=== PATIENT | male | born 1975 | race Caucasian/White ===

== ENCOUNTER 2019-11-15 18:19 | Emergency (ER) | payer BC, MEDICAID ==
[~2019-11-15] VITALS: Ht 177.8 cm; Wt 81.2 kg
--- NOTE | 2019-11-15 18:41 | NUR ---
BIBS FROM HOME TO ER BED 12. AAOX4. NOT IN RESP DISTRESS, BREATHING EVEN ADN UNLABORED. AMBULATORY ON STEADY GAIT. CAME IN FOR WORSENING BLURRED VISION SINCE 1500. PER PT, HE SMOKE CANNABIS @ 1500 WHEN THE BLURRED VISION STARTED. UPTO NOW PT IS IS EXPERIENCING BLURRED VISION THAT IS WORST FROM WHEN IT STARTED. NO NEURO DEFICIT NOTED. NIHSS SCORE OF 3. MD MADE AWARE. AWAITING MD FOR EVAL. PT ON MONITOR.
--- NOTE | 2019-11-15 18:56 | NUR ---
MARCELLA ARELLANO AT BEDSIDE.
[2019-11-15] MEDS ORDERED: IOHEXOL-350 100 ML VIAL IV ONE ×2 (19:12→21:36)
[2019-11-15] MEDS ORDERED: IV NS 0.9% 0 ML IV ONE (19:12)
[2019-11-15] MEDS ORDERED: CT SWABBABLE VALVE TRANS SET 1 EA INFUS.SET MC ONE ×2 (19:12→21:36)
[2019-11-15 19:22] LABS: BASOPHILS # (AUTO) 0.1 /CMM (0.0-0.2); BASOPHILS % (AUTO) 0.9 % (0.0-2.0); EOSINOPHILS % (AUTO) 4.6 % (0.0-6.0); HEMATOCRIT 38 % (39-51); HEMOGLOBIN 12.9 g/dL (13.5-17.5); LYMPHOCYTES # (AUTO) 3.1 /CMM (0.8-4.8); LYMPHOCYTES % (AUTO) 37.7 % (20.0-44.0); MEAN CORPUSCULAR HGB CONC 34 g/dl (31.0-36.0); MEAN CORPUSCULAR VOLUME 87 fL (80-96); MONOCYTES # (AUTO) 0.6 /CMM (0.1-1.30); MONOCYTES % (AUTO) 6.7 % (2.0-12.0); NEUTROPHILS # (AUTO) 4.1 /CMM (1.8-8.9); NEUTROPHILS % (AUTO) 50.1 % (43.0-81.0); PLATELET COUNT (AUTO) 295 /CMM (150-450); RED BLOOD CELL COUNT(AUTO) 4.33 MIL/uL (4.5-6.0); WHITE BLOOD COUNT (AUTO) 8.2 K/uL (4.3-11.0)
[2019-11-15 19:39] LABS: ALBUMIN 3.7 g/dL (3.4-5.0); BILIRUBIN,TOTAL 0.3 mg/dL (0.2-1.0); CREATININE 1.4 mg/dL (0.6-1.3); POTASSIUM 3.7 mmol/L (3.5-5.1); TOTAL PROTEIN, SERUM 7.3 g/dL (6.4-8.2)
[2019-11-15 19:44] LABS: CALCIUM, SERUM 8.3 mg/dL (8.5-10.1)
[2019-11-15] MEDS ORDERED: IV NS 0.9% 1,000 ML IV ONE (21:30)
[2019-11-15] MEDS ORDERED: IV NS 0.9% 250 ML IV ONE (21:36)
--- NOTE | 2019-11-15 22:32 | NUR ---
radiology notified for cta
[2019-11-15 23:57] VITALS: BP 133/82
--- NOTE | 2019-11-15 23:57 | NUR ---
Patient discharged to home in stable condition. Written and verbal after care instructions given. Patient verbalizes understanding of instruction.IV removed. Catheter intact and site benign. Pressure and 4x4 applied to site. No bleeding noted.Pt ambulatory with a steady gait
== END 2019-11-15 23:58 | disposition home or self-care (01) ==
LOC: ER 18:23
DX: H53.8 Other visual disturbances (principal); G89.29 Other chronic pain; M54.9 Dorsalgia, unspecified; R51 Headache; R94.31 Abnormal electrocardiogram [ECG] [EKG]; F12.90 Cannabis use, unspecified, uncomplicated; Z88.0 Allergy status to penicillin
CPT/HCPCS: 36415; 70450; 70496; 80053; 85025; 85610; 93005; 99285; J7030; J7050; Q9967

== ENCOUNTER 2020-01-03 11:17 | Emergency (ER) | payer BC ==
[~2020-01-03] VITALS: Ht 170.2 cm; Wt 75.7 kg
[2020-01-03 11:28] VITALS: BP 141/84
--- NOTE | 2020-01-03 11:40 | NUR ---
Patient discharged to home in stable condition. Written and verbal after care instructions given. Patient verbalizes understanding of instruction.
== END 2020-01-03 11:39 | disposition home or self-care (01) ==
LOC: ER 11:20
DX: L30.9 Dermatitis, unspecified (principal); F17.200 Nicotine dependence, unspecified, uncomplicated; Z88.0 Allergy status to penicillin

== ENCOUNTER 2020-04-03 20:20 | Emergency (ER) | payer BC ==
[~2020-04-03] VITALS: Ht 177.8 cm; Wt 78.5 kg
[2020-04-03 20:30] VITALS: BP 125/91
--- NOTE | 2020-04-03 22:11 | NUR ---
Patient discharged to home in stable condition. Written and verbal after care instructions given. Patient verbalizes understanding of instruction. Pt ambulatory with a steady gait
== END 2020-04-03 22:12 | disposition home or self-care (01) ==
LOC: ER 20:20
DX: R06.00 Dyspnea, unspecified (principal); Z88.0 Allergy status to penicillin; Z88.6 Allergy status to analgesic agent; Z87.891 Personal history of nicotine dependence
CPT/HCPCS: 71045-TC

== ENCOUNTER 2023-12-03 09:51 | Emergency (ER) | payer BC, OTHER ==
[~2023-12-03] VITALS: Ht 177.8 cm; Wt 68.0 kg
[2023-12-03] MEDS ORDERED: ONDANSETRON HCL/PF 4 MG/2 ML VIAL ONE (10:02)
[2023-12-03] MEDS ORDERED: ONDA4TAB5 PO (10:09)
[2023-12-03] MEDS: IV NS 0.9% 1,000 ML BAG IV ONE ×2 (10:11→11:20)
[2023-12-03] MEDS: ONDANSETRON HCL/PF 4 MG/2 ML VIAL IVP ONE (10:12)
[2023-12-03 10:19] LABS: BASOPHILS # (AUTO) 0.1 K/uL (0.0-0.2); BASOPHILS % (AUTO) 0.9 % (0.0-2.0); EOSINOPHILS # (AUTO) 0.4 K/uL (0.0-0.7); EOSINOPHILS % (AUTO) 3.6 % (0.0-6.0); HEMATOCRIT 41 % (39-51); HEMOGLOBIN 13.8 g/dL (13.5-17.5); LYMPHOCYTES # (AUTO) 1.9 K/uL (0.8-4.8); LYMPHOCYTES % (AUTO) 17.5 % (20.0-44.0); MEAN CORPUSCULAR HEMOGLOBIN 29 PG (26.0-33.0); MEAN CORPUSCULAR HGB CONC 33 g/dl (31.0-36.0); MEAN CORPUSCULAR VOLUME 87 fL (80-96); MONOCYTES # (AUTO) 0.6 K/uL (0.1-1.30); MONOCYTES % (AUTO) 5.9 % (2.0-12.0); NEUTROPHILS # (AUTO) 7.8 K/uL (1.8-8.9); NEUTROPHILS % (AUTO) 72.1 % (43.0-81.0); PLATELET COUNT (AUTO) 314 K/uL (150-450); RED BLOOD CELL COUNT(AUTO) 4.71 MIL/uL (4.5-6.0); RED CELL DISTRIBUTION WIDTH 14.3 % (11.5-15.0); WHITE BLOOD COUNT (AUTO) 10.9 K/uL (4.3-11.0)
[2023-12-03 10:29] LABS: ALBUMIN 3.6 g/dL (3.4-5.0); BILIRUBIN,DIRECT 0.1 mg/dL (0.0-0.2); BILIRUBIN,TOTAL 0.2 mg/dL (0.2-1.0); CALCIUM, SERUM 8.3 mg/dL (8.5-10.1); CREATININE 1.1 mg/dL (0.6-1.3); POTASSIUM 4.7 mmol/L (3.5-5.1); TOTAL PROTEIN, SERUM 7.1 g/dL (6.4-8.2)
[2023-12-03 10:58] LABS: APPEARANCE,URINE Clear (CLEAR); BILIRUBIN,URINE Negative (NEGATIVE); BLOOD, URINE Negative Ery/uL (NEGATIVE); COLOR,URINE YELLOW (YELLOW); KETONES,URINE Negative (NEGATIVE); LEUKOCYTE ESTERASE ,URINE Negative (NEGATIVE); NITRITE, URINE Negative (NEGATIVE); PROTEIN,URINE Negative (NEGATIVE); UGLUCOSE Negative (NEGATIVE); UROBILINOGEN,URINE 0.2 EU/dL (0.2)
[2023-12-03] MEDS ORDERED: METOCLOPRAMIDE HCL 10 MG/2 ML VIAL ONE (11:08)
[2023-12-03] MEDS ORDERED: diphenhydrAMINE HCL 50 MG/ML VIAL ONE (11:08)
[2023-12-03] MEDS: METOCLOPRAMIDE HCL 10 MG/2 ML VIAL IV ONE (11:18)
[2023-12-03] MEDS: diphenhydrAMINE HCL 50 MG/ML VIAL IV ONE (11:18)
[2023-12-03 11:25] LABS: AMPHETAMINE, URINE NEGATIVE (NEGATIVE); BARBITURATE, URINE NEGATIVE (NEGATIVE); COCCAINE, URINE NEGATIVE (NEGATIVE); OPIATE, URINE NEGATIVE (NEGATIVE); PHENCYCLIDINE SCREEN,URINE NEGATIVE (NEGATIVE)
[2023-12-03 11:32] LABS: BENZODIAZEPINE, URINE POSITIVE (NEGATIVE); CANNABINOID, URINE POSITIVE (NEGATIVE)
[2023-12-03 12:57] VITALS: BP 138/74; TEMP 97.8; O2SAT 97
== END 2023-12-03 13:02 | disposition home or self-care (01) ==
LOC: ER 09:55
DX: R11.2 Nausea with vomiting, unspecified (principal); R19.7 Diarrhea, unspecified; R10.84 Generalized abdominal pain; F12.10 Cannabis abuse, uncomplicated; Z88.0 Allergy status to penicillin; Z88.8 Allergy status to other drugs, medicaments and biological substances
CPT/HCPCS: 99285; 74176; 96365; 96361; 96375 ×2; 85025; 80048; 83690; 80076; 81003; 36415; 80307; J1200; J2765; J2405; J7030 ×2